=== PATIENT | male | born 1980 | race Hispanic/Latino ===

== ENCOUNTER 2017-01-04 12:42 | Emergency (ER) | payer OTHER ==
[~2017-01-04] VITALS: Ht 162.6 cm; Wt 72.7 kg
[2017-01-04 12:43] VITALS: BP 124/84; PULSE 80; RESP 20; O2SAT 100
[2017-01-04 14:13] LABS: BASOPHILS % (AUTO) 1.6 % (0-3); EOSINOPHILS % (AUTO) 1.1 % (0-5); MONOCYTES % (AUTO) 7.9 % (4-12); Mean Corpuscular Hemoglobin 28.5 pg (27.0-35.0); Mean Corpuscular Volume 84.3 fL (81-100); NEUTROPHILS % (AUTO) 66.3 % (40-74); Platelet Count 319 bil/L (150-400)
[2017-01-04 14:40] LABS: Magnesium 2.3 mg/dL (1.6-2.6)
--- NOTE | 2017-01-04 16:11 | ED.REPORT ---
HPI- Male Date of Service Jan 04, 2017 ED Provider: Meka Arshad History of Present Illness: urinating blood for 3 or 4 weeks. no primary care. no sore throat. also problems with retention. no fevers no nausea or vomiting. Patient reporting he needs to go to court ordered evualation. States will retun later, no exam done Nursing Notes Stated Complaint: BLOOD IN URINE Chief Complaint: Male Abdominal Pain Nursing Notes Reviewed: Yes Allergies: Coded Allergies: No Known Allergies (Unverified Allergy, Unknown, 01/04/17) No Active Prescriptions or Reported Meds General Time Seen by MD: 16:09 Chief Complaint Blood in urine Hx Obtained From: Patient Past Medical History Past Medical History Notes: Pt does not currently have a PCP or mental health provider Past Medical History Substance abuse Denies: Asthma, Diabetes mellitus Past Surgical History Denies Family History Noncontributory Smoking History Former Smoker Social History Alcohol Use: "Social" Drug Use: Meth, THC, Other Occupation lives with girlfriend no work or school Ambulatory Status Independent Physical Exam Initial Vital Signs Vital Signs (First) Date Time Temp Pulse Resp B/P Pulse Ox O2 Delivery O2 Flow Rate FiO2 01/04/17 12:43 36.6 80 20 124/84 100 Room Air Interpretation & Diagnostics Lab Results Interpretation Result Diagram: 01/04/17 1359 01/04/17 1359 Test 01/04/17 13:59 01/04/17 15:47 01/04/17 16:17 White Blood Count 7.0th/mm3 (3.8-10.1) Red Blood Count 5.27mil/mm3 (4.40-5.80) Hemoglobin 15.0g/dL (13.8-17.2) Hematocrit 44.4% (41.0-50.0) Mean Corpuscular Volume 84.3fL (81-100) Mean Corpuscular Hemoglobin 28.5pg (27.0-35.0) Mean Corpuscular Hemoglobin Concent 33.8% (32.0-37.0) Red Cell Distribution Width 13.0% (12.3-15.4) Platelet Count 319bil/L (150-400) Neutrophils (%) (Auto) 66.3% (40-74) Lymphocytes (%) (Auto) 22.8% (14-46) Monocytes (%) (Auto) 7.9% (4-12) Eosinophils (%) (Auto) 1.1% (0-5) Basophils (%) (Auto) 1.6% (0-3) Hold Blue Top Tube Received (Received) Sodium Level 139mEq/L (134-144) Potassium Level 4.6mEq/L (3.5-5.2) Chloride Level 102mEq/L (97-108) Carbon Dioxide Level 24mmol/L (18-29) Blood Urea Nitrogen 10mg/dL (6-20) Creatinine 0.83mg/dL (0.76-1.27) Estimat Glomerular Filtration Rate 112mL/min (>59) Glucose Level 111mg/dL (60-99) Calcium Level 9.2mg/dL (8.5-10.1) Magnesium Level 2.3mg/dL (1.6-2.6) Total Bilirubin 0.6mg/dL (0.0-1.2) Aspartate Amino Transf (AST/SGOT) 29U/L (0-50) Alanine Aminotransferase (ALT/SGPT) 46U/L (0-44) Alkaline Phosphatase 100U/L (25-150) Total Protein 7.6g/dL (6.4-8.4) Albumin 4.7g/dL (3.4-5.0) Hold Red Top Tube Received (Received) Hold Gottlieb Top Tube Received (Received) Hold Urine Received (Received) Urine Color Straw (YELLOW) Urine Appearance Clear (CLEAR,HAZY) Urine pH 8.0 (5.0-8.0) Urine Specific Fernley 1.015 (1.003-1.035) Urine Protein Negativemg/dL (NEG,TRACE) Urine Glucose (UA) Negativemg/dL (NEGATIVE) Urine Ketones Negativemg/dL (NEGATIVE) Urine Occult Blood Negative (NEGATIVE) Urine Nitrite Negative (NEGATIVE) Urine Bilirubin Negative (NEGATIVE) Urine Urobilinogen Normalmg/dL (NORMAL) Urine Leukocyte Esterase Negative (NEGATIVE) Urine RBC 0-2/hpf (0-2) Urine WBC 0-5/hpf (0-5) Urine Epithelial Cells Occasional/hpf (NONE-MOD) Urine Crystals None seen (NONE SEEN) Urine Bacteria Few/hpf (NONE-FEW) Urine Hyaline Casts None/lpf (NONE) Urine Granular Casts None seen (NONE SEEN) Urine Waxy Casts None seen (NONE SEEN) Urine Red Blood Cell Casts None seen (NONE SEEN) Urine White Blood Cell Casts None seen (NONE SEEN) Urine Mucus None seen (None Seen) Urine Trichomonas None seen (NONE SEEN) Urine Yeast None (NONE SEEN) Urinalysis Comment None Urine Culture Reflexed Not indicated Re-Eval/Medical Decision Med Decision/Clinical Course 36 year old male reports urinating blood for 3 to 4 weeks. Is unable to stay and continue evualtion. States will return Discharge & Departure Impression: Primary Impression: Hematuria Disposition: Home Referrals: NOPCP (PCP) EDSupervising Provider for APC: Elida Raya MD, Sue ARNP Jan 04, 2017 16:11
[2017-01-04 17:07] LABS: APPEARANCE,URINE CLEAR (CLEAR,HAZY); COLOR,URINE STRAW (YELLOW); OCCULT BLOOD,URINE NEGATIVE (NEGATIVE); UROBILINOGEN,URINE NORMAL (NORMAL)
== END 2017-01-04 16:22 | disposition home or self-care (01) ==
LOC: SED 12:42
DX: R31.9 Hematuria, unspecified (principal); Z53.29 Procedure and treatment not carried out because of patient's decision for other reasons

== ENCOUNTER 2017-01-04 19:47 | Emergency (ER) | payer OTHER ==
[~2017-01-04] VITALS: Ht 162.6 cm; Wt 72.7 kg
[2017-01-04 19:50] VITALS: BP 132/90; PULSE 89; RESP 16; O2SAT 99
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
--- NOTE | 2017-01-04 21:12 | DRSVH ---
PROCEDURE: CT KUB ([id number]) INDICATIONS: int left flank pain and hematuria TECHNIQUE: Noncontrast 5 mm thick sections acquired from the diaphragms to the symphysis. 5 mm thick coronal an d sagittal reformats were then performed. For radiation dose reduction, the following was used: aut omated exposure control, adjustment of mA and/or kV according to patient size. COMPARISON: None. FINDINGS: Image quality: Excellent. Lung bases: Lung bases are clear. Heart size is normal. Urinary system: Both kidneys are normal in size. There is a punctate calcification versus artifact w ithin the left kidney. No hydronephrosis or perinephric fat stranding. Both ureters appear non-dilat ed throughout their expected courses. Bladder wall thickness is normal; no calcified bladder stones. Other solid organs: Liver and spleen are normal in size. Gallbladder is unremarkable. Pancreas is normal in contours. No adrenal nodules. Peritoneum and bowel: Unenhanced bowel loops demonstrate normal wall thickness and caliber. No free fluid or air. Nodes and vessels: No retroperitoneal or mesenteric adenopathy by size criteria. Aorta and inferior vena cava are normal in caliber. Abdominal wall: No ventral hernias. Pelvis: No free pelvic fluid. No inguinal hernias or adenopathy. Bones: No suspicious bony lesions. No vertebral body compression fractures. IMPRESSION: 1. Punctate calcification versus artifact within the left kidney. No obstruction. No bladder calculi. Dictated by: Ca Jalloh M.D. on 01/04/2017 at 21:08 Approved by: Ca Jalloh M.D. on 01/04/2017 at 21:10
[2017-01-04 21:47] VITALS: BP 141/85; PULSE 73; O2SAT 98
== END 2017-01-04 21:47 | disposition home or self-care (01) ==
LOC: SED 19:47
DX: R31.9 Hematuria, unspecified (principal); R10.32 Left lower quadrant pain; Z87.891 Personal history of nicotine dependence

== ENCOUNTER 2017-04-06 15:02 | Emergency (ER) | payer OTHER ==
[~2017-04-06] VITALS: Ht 160 cm; Wt 68.2 kg
[2017-04-06 15:13] VITALS: BP 131/82; PULSE 85; RESP 16; O2SAT 98
--- NOTE | 2017-04-06 15:29 | ED.REPORT ---
HPI-Rash / Abscess Date of Service Apr 06, 2017 ED Provider: Jerry Tripathi MD Asa is a 36-year-old male with a history of IV heroin use presenting with a chief complaint of redness, swelling and discharge at his right elbow. Complains of 2 areas that have been bothering him for about a week. Denies fever, chills, abdominal pain, vomiting. Nursing Notes Stated Complaint: ABSCESS RIGHT ARM/LEAKING Chief Complaint: Skin Rash/Abscess Nursing Notes Reviewed: Yes Allergies: Coded Allergies: No Known Allergies (Unverified Allergy, Unknown, 01/04/17) Scheduled Clindamycin (Clindamycin) 300 Mg Capsule 300 MG PO QID General Time Seen by MD: 15:24 Chief Complaint Abscess Past Medical History Past Medical History Notes: Pt does not currently have a PCP or mental health provider Past Medical History Substance abuse Past Surgical History Denies Family History Noncontributory Smoking History Former Smoker Social History Alcohol Use: "Social" Drug Use: Meth, THC, Other Occupation lives with girlfriend no work or school Ambulatory Status Independent Review of Systems Review of Systems Note: Negative unless stated otherwise in history of present illness Physical Exam General: Well appearing, well developed, well nourished, no acute distress. Left elbow: 4 cm area of redness, swelling, fluctuance, tenderness on the proximal forearm to the ulnar aspect, just distal to the elbow. Several small areas of crusting. 2 cm area of redness, swelling, fluctuance and tenderness on the dorsal, proximal forearm, with a small area of crusting. Full range of motion. Left wrist/hand: neurovascularly intact, radial pulse 2+. Head: Atraumatic, normocephalic. Eyes: No scleral icterus or injection. No discharge. Vision grossly intact. ENT: Voice clear, hearing grossly intact. Respiratory: No respiratory distress, no increased work of breathing. Speaks in complete sentences. Skin: Warm and dry. Neurological: Grossly nonfocal. Psychological: alert and oriented. Speech appropriate, linear and logical. Behavior appropriate. Initial Vital Signs Vital Signs (First) Date Time Temp Pulse Resp B/P Pulse Ox O2 Delivery O2 Flow Rate FiO2 04/06/17 15:13 36.4 85 16 131/82 98 Room Air Normal Interpretation & Diagnostics Lab Results Interpretation Result Diagram: 04/06/17 1650 04/06/17 1650 Test 04/06/17 16:50 White Blood Count 12.2th/mm3 (3.8-10.1) Red Blood Count 4.90mil/mm3 (4.40-5.80) Hemoglobin 14.0g/dL (13.8-17.2) Hematocrit 42.6% (41.0-50.0) Mean Corpuscular Volume 86.9fL (81-100) Mean Corpuscular Hemoglobin 28.6pg (27.0-35.0) Mean Corpuscular Hemoglobin Concent 32.9% (32.0-37.0) Red Cell Distribution Width 13.1% (12.3-15.4) Platelet Count 395bil/L (150-400) Neutrophils (%) (Auto) 71.4% (40-74) Lymphocytes (%) (Auto) 17.4% (14-46) Monocytes (%) (Auto) 8.1% (4-12) Eosinophils (%) (Auto) 2.0% (0-5) Basophils (%) (Auto) 0.9% (0-3) Sodium Level 138mEq/L (134-144) Potassium Level 5.1mEq/L (3.5-5.2) Chloride Level 103mEq/L (97-108) Carbon Dioxide Level 26mmol/L (18-29) Blood Urea Nitrogen 14mg/dL (6-20) Creatinine 0.96mg/dL (0.76-1.27) Estimat Glomerular Filtration Rate 95mL/min (>59) Glucose Level 110mg/dL (60-99) Calcium Level 9.1mg/dL (8.5-10.1) Total Bilirubin 0.3mg/dL (0.0-1.2) Aspartate Amino Transf (AST/SGOT) 19U/L (0-50) Alanine Aminotransferase (ALT/SGPT) 12U/L (0-44) Alkaline Phosphatase 107U/L (25-150) Total Protein 7.2g/dL (6.4-8.4) Albumin 3.9g/dL (3.4-5.0) Hold Gottlieb Top Tube Received (Received) Re-Eval/Medical Decision Med Decision/Clinical Course 36-year-old male history IV heroin abuse presents with 2 abscess on right arm present approximately one week. Vitals are normal, afebrile. CBC, CMP are unremarkable with only a mild leukocytosis at 12.1. I have low concern for sepsis for widespread cellulitis. Patient referred from urgent care in the belief that he may need hospitalization and IV antibiotics. Patient reports he will not be hospitalized. I discussed this with Dr. tripathi, we agree this is reasonable to treat on an outpatient basis with oral clindamycin. Both abscesses are incised and drained, packing placed, dressing and by ointment and gauze. Supplied prescription for clindamycin, advised regarding over-the- counter analgesia. Advise primary care follow-up in 2-3 days, failing that return to the emergency department for recheck. Advise regarding wound care. Advised regarding primary care follow-up, provided emergency return precautions. Patient verbalized understanding of, and consent to, the plan. Discharge & Departure Impression: Primary Impression: Abscess Additional Impression: Cellulitis Site of cellulitis: unspecified site Qualified Code: L03.90 - Cellulitis, unspecified Disposition: Home Discharge Condition All VS Reviewed: Yes Condition: Stable Patient Instructions: Abscess Incision and Drainage (DC) Additional Instructions: Evaluation for abscess in the emergency department includes history, physical examination blood tests all of which are reassuring that you do not have a serious, systemic infection. You do however have 2 quite substantial abscesses on your right arm. We have drained these abscesses, packed them with gauze and dressed them with antibiotic ointment and gauze dressings. If possible, keep these covered up and drive for 24 hours. After that you can change the dressing, wash with soap and water. Leave the gauze in place until the wound is reassessed. If it falls out before then, that is okay. Do not soak as in bathing or swimming until they are completely healed. I will write a prescription for clindamycin to be taken 4 times a day for the next 7 days. This is an antibiotic to help and the infection. The pain is best treated with 800 mg of ibuprofen (Advil, Motrin) every 6 hours , or 1000 mg of acetaminophen (Tylenol) every 6 hours. These drugs can be taken at the same time for more severe pain. I will provide you with a referral to see a primary care provider. It would be best few to follow up with them in 2-3 days. If this is not possible, return to the emergency department to have your wound re-assessed. Return to emergency department for new or worsening symptoms including increasing redness, pain, swelling, fever, feeling sick. Referrals: [facility] EDSupervising Provider for APC: Jerry Tripathi MD Attending Statement Attending attestation: I saw this patient in conjunction with Pancho Horowitz PA-C. I was present for swann portions of the history taking and physical examination. I agree with the workup, evaluation, treatment and disposition. Jerry Tripathi MD copies to: [facility] Jerry Tripathi MD Apr 06, 2017 15:29 Pancho Horowitz PA-C Apr 06, 2017 16:52
[2017-04-06 17:00] LABS: BASOPHILS % (AUTO) 0.9 % (0-3); MONOCYTES % (AUTO) 8.1 % (4-12); Mean Corpuscular Hemoglobin 28.6 pg (27.0-35.0); Mean Corpuscular Volume 86.9 fL (81-100); NEUTROPHILS % (AUTO) 71.4 % (40-74); Platelet Count 395 bil/L (150-400)
[2017-04-06] MEDS ORDERED: CLIN-78 PO (17:34)
[2017-04-06 17:46] VITALS: BP 129/77; PULSE 81; RESP 20; O2SAT 99
== END 2017-04-06 17:47 | disposition home or self-care (01) ==
LOC: SED 15:02
DX: L02.413 Cutaneous abscess of right upper limb (principal); L03.113 Cellulitis of right upper limb; D72.829 Elevated white blood cell count, unspecified; F11.10 Opioid abuse, uncomplicated; Z87.891 Personal history of nicotine dependence

== ENCOUNTER 2017-04-08 15:03 | Emergency (ER) | payer OTHER ==
[~2017-04-08] VITALS: Ht 161.3 cm; Wt 72.7 kg
[~2017-04-08 15:03] MED LIST: CLIN-78 PO
[2017-04-08 15:21] VITALS: BP 117/80; PULSE 96; RESP 16; O2SAT 98
--- NOTE | 2017-04-08 15:27 | ED.REPORT ---
HPI-Recheck W/B/S Date of Service Apr 08, 2017 ED Provider: Augusto De Leon DO A 36 year old male with a history of methamphetamine abuse presents to the ED requesting a wound recheck. The pt had an abscess drained on his right forearm yesterday but the packing was accidentally pulled out today by his dog. The pt is now requesting a recheck and redressing of the wound. He is on antibiotics and states that the wound looks better than it did previously. Nursing Notes Stated Complaint: RIGHT ARM LACERATION, (PACKING CAME OUT) Chief Complaint: Wound Recheck/Suture Removal Nursing Notes Reviewed: Yes Allergies: Coded Allergies: No Known Allergies (Verified Allergy, Unknown, 04/08/17) Scheduled Clindamycin (Clindamycin) 300 Mg Capsule 300 MG PO QID General Time Seen by Provider: 15:26 Chief Complaint Wound check Hx Obtained From: Patient Arrived By: Walk-in Onset Occurred: 5 - 8 hours ago Symptom Duration: Since onset Recent Healthcare: No recent hospitalization, Recent doctor visit Similar Sx Previous: No Past Medical History Past Medical History Notes: Pt does not currently have a PCP or mental health provider Past Medical History Substance abuse Past Surgical History none reported Family History Noncontributory Smoking History Current Every Day Smoker Social History Alcohol Use: "Social" Drug Use: Meth, THC, Other Occupation lives with girlfriend no work or school Ambulatory Status Independent Review of Systems Complete sys rev & neg: except as marked. Respiratory: Denies: Non-productive cough, Shortness of breath Cardiovascular: Denies: Chest pain GI: Denies: Abdominal pain Musculoskeletal: Reports: Extremity pain (right forearm), Denies: Neck pain Physical Exam Initial Vital Signs Vital Signs (First) Date Time Temp Pulse Resp B/P Pulse Ox O2 Delivery O2 Flow Rate FiO2 04/08/17 15:21 37.0 96 16 117/80 98 Room Air Initial VS: Reviewed Skin: Color NL, Warm, Dry two areas of abscess on the right forearm 3 cm area of abscess on the medial portion of the elbow 2 cm area of abscess on the outside of the elbow abscesses healing well General/Constitutional: Awake, Alert Head / Eyes: Atraumatic, Normocephalic, PERRL, EOMI ENT: Atraumatic, Airway patent, Mucous membranes moist Neck: Atraumatic, Supple, Full range of motion Respiratory / Chest: Atraumatic, Breath sounds NL, Breath sounds = bilat, No respiratory distress Cardiovascular: Heart rate NL, Regular rhythm, Heart sounds NL Abdomen: Atraumatic, Soft, Non-tender Back: Atraumatic, Full range of motion Upper Extremity / MS: Full range of motion, Neurologic intact, Vascular intact Lower Extremity / Pelvis / MS: Atraumatic, Full range of motion Neurologic: Oriented X3, Speech NL, No motor deficits, No sensory deficits Psychiatric: Affect NL, Mood NL Procedures Skin: Wound / Burn Check Skin: Wound/Burn Check: packed with 3 inches of .25 inch iodoform Location: right forearm Normal Wound / Burn Check: Healing well, No apparent infection Inspection Abnormal: Erythema at wound edges Palpation Abnormal: Tenderness mild Packing: Packing removed (prior to arrival), New packing inserted Re-Eval/Medical Decision Source of Hx: Old records Re-Evaluation/Progress : Time of Eval: 15:45 Patient Status: Condition improved Re-Evaluation/Progress Note: Pt rechecked and wound is packed and redressed. The diagnosis and plan for discharge are discussed. The pt understands and agrees with the plan. All questions are addressed at this time. Counseled Regarding: Diagnosis, Need for follow-up, When/why to return to ED Discharge & Departure Impression: Primary Impression: Abscess Disposition: Home Discharge Condition All VS Reviewed: Yes Condition: Stable Additional Instructions: Continue your medications. Return to the ER in 2-3 days for packing removal and wound recheck. Return sooner if your symptoms worsen. Referrals: [facility] Ana Attestation Portions of this note were transcribed by Pablo Yañez. I, Dr. De Leon personally performed the history, physical exam and medical decision-making; I reviewed and confirmed the accuracy of the information in the transcribed note. Signed by: Ana Fallon, 04/08/2017 and 0194. copies to: [facility] Augusto De Leon DO Apr 08, 2017 15:27 PABLO YAÑEZ Apr 08, 2017 15:36
== END 2017-04-08 16:07 | disposition home or self-care (01) ==
LOC: SED 15:03
DX: L02.413 Cutaneous abscess of right upper limb (principal); F17.200 Nicotine dependence, unspecified, uncomplicated